=== PATIENT | female | born 1980 | race Caucasian/White ===

== ENCOUNTER 2023-09-05 08:45 | Emergency (ER) | payer MEDICAID ==
[~2023-09-05] VITALS: Ht 162.6 cm; Wt 77.1 kg
[2023-09-05 08:54] VITALS: BP_SYST 140; PULSE 126; RESP 22; TEMP 98.3; O2SAT 95
[2023-09-05] MEDS ORDERED: OSEL75CA PO (10:21)
[2023-09-05 11:48] VITALS: BP_SYST 140; PULSE 126; RESP 22; TEMP 98.3; O2SAT 95
== END 2023-09-05 11:49 | disposition home or self-care (01) ==
LOC: SED 08:45
DX: J10.1 Influenza due to other identified influenza virus with other respiratory manifestations (principal); R05.9 Cough, unspecified; R09.81 Nasal congestion; Z79.899 Other long term (current) drug therapy
CPT/HCPCS: 99283